=== PATIENT | female | born 1950 | race Caucasian/White ===

== ENCOUNTER 2020-06-22 07:45 | Outpatient (CLI) | payer MEDICARE, OTHER ==
--- NOTE | 2020-06-22 12:40 | Ultrasound Report ---
PROCEDURE: Abdomen Limited INDICATIONS: HEIDI COLORED STOOLS, LOWER ABD PAIN TECHNIQUE: Real-time focused scanning was performed of the abdomen, with image documentation. COMPARISON: None FINDINGS: The liver demonstrates normal size and echogenicity. The liver demonstrates a coarse echot exture. No liver lesions are detected. Numerous layering gallstones are seen, with sludge also present The gallbladder wall does not appear thickened. There is no specific pericholecystic fluid. The sonographic Fam's sign is negative. No biliary ductal dilatation is seen. The common bile duct measures 3 mm. The visualized pancreas is within normal limits. The visualized right kidney is unremarkable. IMPRESSION: Gallstones and sludge can be seen within the gallbladder, without additional sonographic signs of cho lecystitis. No biliary dilatation is seen. Coarse liver echotexture, without a focal liver lesion identified. Reviewed by: Matthieu Rosa MD on 06/22/2020 11:38 AM AZY Approved by: Matthieu Rosa MD on 06/22/2020 11:38 AM ZAY Station ID: [id number]
== END 2020-06-22 07:46 | disposition home or self-care (01) ==
LOC: DI 07:45
PROVIDERS: ATTEND Family Medicine
DX: K80.20 Calculus of gallbladder without cholecystitis without obstruction (principal)